=== PATIENT | female | born 2000 | race Caucasian/White ===

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

== ENCOUNTER → 2018-01-30 | Outpatient (REF) | payer OTHER | LOC: M SFHCLERA 10:58 | PROVIDERS: ATTEND Physician Assistant | DX: J02.9 Acute pharyngitis, unspecified (principal) ==

== ENCOUNTER 2018-07-19 14:51 | Emergency (ER) | payer MEDICAID, OTHER, SELFPAY ==
[~2018-07-19] VITALS: Ht 170.2 cm; Wt 75.8 kg
[2018-07-19 15:53] LABS: BASO % 0.4 % (0.0-1.0); EOS # 0.1 10^3/uL (0.0-0.50); EOS % 0.8 % (0.0-3.0); HEMATOCRIT 40.5 % (36.0-47.0); HEMOGLOBIN 13.5 g/dl (12.0-15.5); LYMPH # 1.8 10^3/uL (1.5-6.5); LYMPH % 25.5 % (24.0-44.0); MEAN CORPUSCULAR HEMOGLOBIN 29.5 pg (27.0-33.0); MEAN CORPUSCULAR HGB CONC 33.3 g/dl (32.0-36.5); MEAN CORPUSCULAR VOLUME 88.6 fl (80.0-96.0); MONO # 0.6 10^3/uL (0.0-0.8); MONO % 8.4 % (0.0-5.0); NEUTROPHILS # 4.6 10^3/uL (1.8-7.7); NEUTROPHILS % 64.6 % (36.0-66.0); PLATELET COUNT, AUTOMATED 274 10^3/uL (150-450); RED BLOOD COUNT 4.57 10^6/uL (4.00-5.40); WHITE BLOOD COUNT 7.2 10^3/uL (4.0-10.0)
[2018-07-19 16:12] LABS: BLOOD UREA NITROGEN 13 MG/DL (7-18); CALCIUM LEVEL 8.8 MG/DL (8.5-10.1); CARBON DIOXIDE LEVEL 32 MEQ/L (21-32); CHLORIDE LEVEL 107 MEQ/L (98-107); CREATININE FOR GFR 0.85 MG/DL (0.55-1.30); GLUCOSE, FASTING 89 MG/DL (70-100); POTASSIUM SERUM 4.6 MEQ/L (3.5-5.1); SODIUM LEVEL 142 MEQ/L (136-145)
[2018-07-19 16:23] LABS: HCG, SERUM QUALITATIVE NEGATIVE (NEGATIVE)
[2018-07-19 18:19] VITALS: BP 131/74
--- NOTE | 2018-07-19 18:25 | REP ---
NON-OB PELVIC ULTRASOUND: HISTORY: Left lower quadrant pain. The uterus measures 4 cm in tranverse x 3 cm in AP x 7.1 cm in cephalocaudal dimensions. The endometrium measures 5.7 mm. The right ovary measures 4.3 x 1.9 x 1.8 cm. The left ovary measures 3.6 x 1.4 x 1.2 cm. Normal blood flow is present. There is no fluid in the cul-de-sac. IMPRESSION:Normal pelvic ultrasound. Electronically Signed by Manoj Velazquez MD 07/19/2018 07:19 P
[2018-07-19 18:56] LABS: CHLAMYDIA DNA AMPLIFICATION NEGATIVE (NEGATIVE); GC DNA AMPLIFICATION NEGATIVE (NEGATIVE)
== END 2018-07-19 18:23 | disposition home or self-care (01) ==
LOC: M ED 14:51
DX: N93.9 Abnormal uterine and vaginal bleeding, unspecified (principal); Z86.19 Personal history of other infectious and parasitic diseases; Z91.410 Personal history of adult physical and sexual abuse; Z88.0 Allergy status to penicillin; Z88.1 Allergy status to other antibiotic agents

== ENCOUNTER → 2018-09-18 | Outpatient (REF) | payer OTHER, SELFPAY ==
[2018-09-18 20:27] LABS: HCG, SERUM QUALITATIVE NEGATIVE (NEGATIVE)
[2018-09-18 22:13] LABS: CHLAMYDIA DNA AMPLIFICATION NEGATIVE (NEGATIVE); GC DNA AMPLIFICATION NEGATIVE (NEGATIVE)
== END ==
LOC: M SFHCLERA 18:32
PROVIDERS: ATTEND Physician Assistant Medical
DX: R10.2 Pelvic and perineal pain (principal)

== ENCOUNTER → 2021-05-06 | Outpatient (REF) | payer OTHER ==
[2021-05-06 17:00] LABS: HEMATOCRIT 35.3 % (36.0-47.0); HEMOGLOBIN 12.1 g/dl (12.0-15.5); MEAN CORPUSCULAR HEMOGLOBIN 30.7 pg (27.0-33.0); MEAN CORPUSCULAR HGB CONC 34.3 g/dl (32.0-36.5); MEAN CORPUSCULAR VOLUME 89.6 fl (80.0-96.0); PLATELET COUNT, AUTOMATED 215 10^3/uL (150-450); RED BLOOD COUNT 3.94 10^6/uL (4.00-5.40); WHITE BLOOD COUNT 9.9 10^3/uL (4.0-10.0)
[2021-05-06 19:10] LABS: HEPATITIS B SURFACE ANTIGEN NEGATIVE (NEGATIVE); HEPATITIS C VIRUS ABY INDEX 0.2 INDEX (<0.8); HIV 1&2 SCREEN CENTAUR NEGATIVE (NEGATIVE)
== END ==
LOC: M LAB REF 16:18
PROVIDERS: ATTEND Obstetrics & Gynecology
DX: Z34.82 Encounter for supervision of other normal pregnancy, second trimester (principal)

== ENCOUNTER → 2021-06-19 | Outpatient (CLI) | payer OTHER ==
[2021-06-19 14:04] LABS: BASO % 0.3 % (0.0-1.0); EOS % 0.6 % (0.0-3.0); HEMATOCRIT 37.6 % (36.0-47.0); HEMOGLOBIN 12.6 g/dl (12.0-15.5); LYMPH # 0.7 10^3/uL (1.5-5.0); LYMPH % 11.1 % (24.0-44.0); MEAN CORPUSCULAR HEMOGLOBIN 29.9 pg (27.0-33.0); MEAN CORPUSCULAR HGB CONC 33.5 g/dl (32.0-36.5); MEAN CORPUSCULAR VOLUME 89.1 fl (80.0-96.0); MONO # 0.5 10^3/uL (0.0-0.8); NEUTROPHILS # 5.3 10^3/uL (1.5-8.5); NEUTROPHILS % 80.4 % (36.0-66.0); PLATELET COUNT, AUTOMATED 198 10^3/uL (150-450); RED BLOOD COUNT 4.22 10^6/uL (4.00-5.40); WHITE BLOOD COUNT 6.6 10^3/uL (4.0-10.0)
== END ==
LOC: M LAB 11:58
PROVIDERS: ATTEND Obstetrics & Gynecology
DX: Z34.82 Encounter for supervision of other normal pregnancy, second trimester (principal)

== ENCOUNTER 2021-08-18 16:10 | Outpatient (CLI) | payer OTHER ==
[~2021-08-18] VITALS: Ht 170.2 cm; Wt 80.3 kg
[2021-08-18 16:28] VITALS: BP 142/84
[2021-08-18 16:46] VITALS: BP 122/75
[2021-08-18] MEDS ORDERED: PNV-TAB2 PO (18:05)
== END 2021-08-18 18:10 | disposition home or self-care (01) ==
LOC: M LDO 16:10
PROVIDERS: ATTEND Obstetrics & Gynecology
DX: O26.893 Other specified pregnancy related conditions, third trimester (principal); N89.8 Other specified noninflammatory disorders of vagina; O99.513 Diseases of the respiratory system complicating pregnancy, third trimester; J06.9 Acute upper respiratory infection, unspecified; Z3A.34 34 weeks gestation of pregnancy

== ENCOUNTER → 2021-08-25 | Outpatient (REF) | payer OTHER, MEDICAID ==
[~2021-08-25] MED LIST changes: +PNV-TAB2 PO
== END ==
LOC: M LAB REF 16:28
PROVIDERS: ATTEND Advanced Practice Midwife
DX: Z34.03 Encounter for supervision of normal first pregnancy, third trimester (principal)

== ENCOUNTER → 2021-08-26 | Outpatient (CLI) | payer MEDICAID, OTHER ==
[2021-08-26 14:12] LABS: FREE T4 0.94 NG/DL (0.76-1.46); THYROID STIMULATING HORMONE 0.684 uIU/ML (0.358-3.740)
== END ==
LOC: M PLALAB 10:07
PROVIDERS: ATTEND Internal Medicine Cardiovascular Disease
DX: R00.0 Tachycardia, unspecified (principal)

== ENCOUNTER 2021-09-07 10:24 | Inpatient (IN) | payer OTHER ==
[2021-09-07] VITALS (30 sets, daily range): BP systolic 105–177; BP diastolic 70–103
[~2021-09-07] VITALS: Ht 170.2 cm; Wt 81.2 kg
[2021-09-07] MEDS ORDERED: HOME MED LIST COMPLETE! XX SCH (10:55)
[2021-09-07 11:32] LABS: HEMOGLOBIN 12.4 g/dl (12.0-15.5); MEAN CORPUSCULAR HEMOGLOBIN 27.7 pg (27.0-33.0); MEAN CORPUSCULAR HGB CONC 33.5 g/dl (32.0-36.5); MEAN CORPUSCULAR VOLUME 82.6 fl (80.0-96.0); PLATELET COUNT, AUTOMATED 171 10^3/uL (150-450); RED BLOOD COUNT 4.48 10^6/uL (4.00-5.40); WHITE BLOOD COUNT 9.2 10^3/uL (4.0-10.0)
[2021-09-07] MEDS ORDERED: LACTATED RINGER'S 1000 ML IV STA (11:36)
[2021-09-07] MEDS ORDERED: OXYTOCIN INJ 10 UNITS/ML VIAL (J2590) IM PRN (11:40)
[2021-09-07] MEDS ORDERED: TRANEXAMIC ACID INJection 1,000 MG in NS 100 ML IV PRN (11:40)
[2021-09-07] MEDS ORDERED: OXYTOCIN DRIP 30 UNITS in IV 1 EA IV PRN (11:40)
[2021-09-07] MEDS ORDERED: LIDOCAINE 1% MDV 20ML VIAL INFIL PRN (11:40)
[2021-09-07] MEDS ORDERED: METHYLERGONOVINE MALEATE 0.2 MG/ML VIAL (J2210) IM PRN (11:40)
[2021-09-07] MEDS ORDERED: CARBOPROST TROMETHAMINE 250 MCG/ML AMP IM PRN (11:40)
[2021-09-07] MEDS ORDERED: miSOPROStol 50MCG 1/2 TABLET PO SCH (12:10)
[2021-09-07 12:45] LABS: TOTAL PROTEIN,RANDOM URINE 16.7 MG/DL (0.0-12.0)
[2021-09-07 12:48] LABS: ALT/SGPT 21 U/L (12-78); BILIRUBIN,TOTAL 0.6 MG/DL (0.2-1.0); CREATININE FOR GFR 0.52 MG/DL (0.55-1.30); GLOMERULAR FILTRATION RATE > 60.0 (>60); LDH LACTATE DEHYDROGENASE 199 U/L (84-246)
[2021-09-07] MEDS ORDERED: LR 1,000 ML IV SCH (17:00)
[2021-09-07] MEDS ORDERED: OXYTOCIN DRIP 30 UNITS in IV 1 EA IV SCH (17:00)
[2021-09-07] MEDS ORDERED: FENTANYL 2MCG/ML ROPIVACAINE 0.2% IN 0.9% NACL 100ML IVBAG As Ordered ONE (20:49)
[2021-09-07] MEDS ORDERED: ePHEDrine SULFATE 25 MG/5 ML(5MG/ML) SYRINGE IVP PRN (21:15)
[2021-09-07] MEDS ORDERED: NALOXONE INJ 0.4MG/1ML VIAL (J2310 PER 1MG) IV PRN (21:15)
[2021-09-07] MEDS ORDERED: diphenhydrAMINE 50MG/ML VIAL (J1200) IV PRN (21:15)
[2021-09-07] MEDS ORDERED: FENTANYL/ROPIVACAINE/NACL BAG 100 ML EPIDURAL SCH (21:15)
[2021-09-07] MEDS ORDERED: EPIDURAL/PCA KEYS XX PRN (21:15)
[2021-09-07] MEDS ORDERED: LR 500 ML IV PRN (21:15)
[2021-09-07] MEDS ORDERED: ONDANSETRON 4MG 2ML VIAL IV PRN (21:15)
[2021-09-08] VITALS (17 sets, daily range): BP systolic 114–189; BP diastolic 57–101
[2021-09-08 00:41] LABS: APPEARANCE, URINE HAZY (CLEAR); BACTERIA, URINE AUTO NEGATIVE (NEGATIVE); BILIRUBIN, URINE AUTO NEGATIVE (NEGATIVE); BLOOD, URINE BLOOD 2+ (NEGATIVE); COLOR, URINE YELLOW (YELLOW); GLUCOSE, URINE (UA) AUTO NEGATIVE (NEGATIVE); KETONE, URINE AUTO 1+ mg/dL (NEGATIVE); LEUKOCYTE ESTERASE, URINE AUTO NEGATIVE (NEGATIVE); MUCUS, URINE SMALL (NEGATIVE); NITRITE, URINE AUTO NEGATIVE (NEGATIVE); PROTEIN, URINE AUTO NEGATIVE (NEGATIVE); RBC, URINE AUTO 160 /HPF (0-3); SPECIFIC GRAVITY URINE AUTO 1.014 (1.002-1.035); SQUAMOUS EPITHELIAL CELL UR AU 0 /HPF (0-6); TRANSITIONAL EPITHELIAL AUTO <1 /HPF; UROBILINOGEN, URINE AUTO 0.2 mg/dL (0.0-2.0); WBC, URINE AUTO 2 /HPF (0-3)
[2021-09-08 02:49] LABS: GC DNA AMPLIFICATION NEGATIVE (NEGATIVE)
[2021-09-08] MEDS ORDERED: ACETAMINOPHEN 500 MG TAB PO PRN (05:10)
[2021-09-08] MEDS ORDERED: IBUPROFEN 600MG TAB PO PRN (05:10)
[2021-09-08] MEDS ORDERED: RHOGAM 300 MCG (1500 IU) INJ (J2790) IM SCH (05:10)
[2021-09-08] MEDS ORDERED: MOM 30ML SUSPENSION UDC PO PRN (05:10)
[2021-09-08] MEDS ORDERED: DIBUCAINE 1% OINTMENT 30GM TOP PRN (05:10)
[2021-09-08] MEDS ORDERED: METHYLERGONOVINE MALEATE 0.2 MG TAB PO PRN (05:10)
[2021-09-08] MEDS ORDERED: ANUSOL HC CREAM 30GM TOP PRN (05:10)
[2021-09-08] MEDS ORDERED: DOCUSATE SODIUM 100MG CAPSULE PO PRN (05:10)
[2021-09-08] MEDS: ACETAMINOPHEN TAB 650MG DOSE (2X325MG) PO PRN (06:26)
[2021-09-08] MEDS: PRENATAL VITAMINS CHEWABLE TABLET PO SCH (08:24)
[2021-09-08] MEDS: IBUPROFEN 800 MG TAB PO PRN ×2 (08:25→17:06)
[2021-09-09] MEDS: IBUPROFEN 800 MG TAB PO PRN ×2 (03:18→15:37)
[2021-09-09 06:00] VITALS: BP 137/81
[2021-09-09] MEDS: PRENATAL VITAMINS CHEWABLE TABLET PO SCH (07:38)
[2021-09-09] MEDS: ANUSOL HC CREAM 30GM TOP SCH ×2 (13:11→21:34)
[2021-09-09 18:00] VITALS: BP 131/69
[2021-09-09] MEDS: ACETAMINOPHEN TAB 650MG DOSE (2X325MG) PO PRN (21:36)
[2021-09-10] MEDS: IBUPROFEN 800 MG TAB PO PRN (04:34)
[2021-09-10 06:00] VITALS: BP 135/77
[2021-09-10] MEDS: ANUSOL HC CREAM 30GM TOP SCH (07:51)
[2021-09-10] MEDS: PRENATAL VITAMINS CHEWABLE TABLET PO SCH (07:51)
[2021-09-10] MEDS ORDERED: MEASLES,MUMPS,RUBELLA VACCINE INJ (MMR-II) (90707) SC.IMMUN ONE (09:00)
[2021-09-10] MEDS ORDERED: IBUP-1022 PO (09:28)
[2021-09-10] MEDS ORDERED: COLA100C5 PO (09:28)
[2021-09-10] MEDS ORDERED: ACET-683 PO (09:28)
[2021-09-10] MEDS ORDERED: medroxyPROGESTERone ACET IM SUSP 150 MG/ML VIAL (J1050) IM ONE (09:35)
== END 2021-09-10 11:20 | disposition home or self-care (01) | DRG 560 ==
LOC: M LDO 10:24 → M LDI 10:50 → M OBS 09-08 06:00
PROVIDERS: ADMIT Advanced Practice Midwife; ATTEND Advanced Practice Midwife
PROC: 10E0XZZ Delivery of Products of Conception, External Approach (ICD-10-PCS; principal; 2021-09-08)
PROC: 0HQ9XZZ Repair Perineum Skin, External Approach (ICD-10-PCS; 2021-09-08)
DX: O42.02 Full-term premature rupture of membranes, onset of labor within 24 hours of rupture (principal); O13.2 Gestational [pregnancy-induced] hypertension without significant proteinuria, second trimester; Z3A.38 38 weeks gestation of pregnancy; Z37.0 Single live birth; O70.0 First degree perineal laceration during delivery

== ENCOUNTER → 2021-11-09 | Outpatient (REF) ==
[~2021-11-09] MED LIST changes: +ACET-683 PO; +COLA100C5 PO; +IBUP-1022 PO
== END ==
LOC: M EMP 07:36
PROVIDERS: ATTEND Family Medicine
DX: Z11.52 Encounter for screening for COVID-19 (principal)

== ENCOUNTER → 2021-11-13 | Outpatient (REF) | LOC: M EMP 11-12 12:02 | PROVIDERS: ATTEND Family Medicine | DX: Z11.52 Encounter for screening for COVID-19 (principal) ==

== ENCOUNTER → 2021-11-19 | Outpatient (REF) | LOC: M EMP 07:36 | PROVIDERS: ATTEND Family Medicine | DX: Z11.52 Encounter for screening for COVID-19 (principal) ==

== ENCOUNTER → 2021-12-18 | Outpatient (REF) ==
[2021-12-18 12:19] LABS: RSV AMPLIFICATION NEGATIVE (NEGATIVE)
== END ==
LOC: M EMP 10:38
PROVIDERS: ATTEND Family Medicine
DX: Z11.52 Encounter for screening for COVID-19 (principal)

== ENCOUNTER 2022-02-14 09:44 | Emergency (ER) | payer OTHER ==
[~2022-02-14] VITALS: Ht 170.2 cm; Wt 68.1 kg
[2022-02-14 12:24] VITALS: BP 117/70
== END 2022-02-14 12:27 | disposition home or self-care (01) ==
LOC: M ED 09:44
DX: J02.9 Acute pharyngitis, unspecified (principal); R00.0 Tachycardia, unspecified; Z88.1 Allergy status to other antibiotic agents; Z88.5 Allergy status to narcotic agent

== ENCOUNTER → 2022-03-25 | Outpatient (REF) ==
[2022-03-25 13:31] LABS: RSV AMPLIFICATION NEGATIVE (NEGATIVE)
== END ==
LOC: M LABSMTC 10:47
PROVIDERS: ATTEND Family Medicine
DX: Z11.52 Encounter for screening for COVID-19 (principal)

== ENCOUNTER → 2022-03-30 | Outpatient (REF) | payer OTHER ==
[2022-03-30 17:07] LABS: BASO % 0.7 % (0.0-1.0); EOS # 0.1 10^3/uL (0.0-0.5); EOS % 1.2 % (0.0-3.0); HEMATOCRIT 40.8 % (36.0-47.0); HEMOGLOBIN 13.6 g/dl (12.0-15.5); LYMPH # 2.1 10^3/uL (1.5-5.0); LYMPH % 35.5 % (24.0-44.0); MEAN CORPUSCULAR HEMOGLOBIN 28.8 pg (27.0-33.0); MEAN CORPUSCULAR HGB CONC 33.3 g/dl (32.0-36.5); MEAN CORPUSCULAR VOLUME 86.4 fl (80.0-96.0); MONO # 0.4 10^3/uL (0.0-0.8); NEUTROPHILS # 3.4 10^3/uL (1.5-8.5); NEUTROPHILS % 56.4 % (36.0-66.0); PLATELET COUNT, AUTOMATED 291 10^3/uL (150-450); RED BLOOD COUNT 4.72 10^6/uL (4.00-5.40)
[2022-03-30 17:46] LABS: BLOOD UREA NITROGEN 8 MG/DL (9-23); CALCIUM LEVEL 9.3 MG/DL (8.5-10.1); CARBON DIOXIDE LEVEL 28 MMOL/L (20-31); CHLORIDE LEVEL 104 MMOL/L (98-107); GLUCOSE, FASTING 72 MG/DL (60-100); POTASSIUM SERUM 4.2 MMOL/L (3.5-5.1); SODIUM LEVEL 138 MMOL/L (136-145)
[2022-03-30 20:08] LABS: CREATININE FOR GFR 0.65 MG/DL (0.55-1.30); GLOMERULAR FILTRATION RATE > 60.0 (>60)
== END ==
LOC: M LAB REF 16:34
PROVIDERS: ATTEND Physician Assistant
DX: E87.6 Hypokalemia (principal)

== ENCOUNTER → 2022-05-21 | Outpatient (CLI) | payer OTHER | LOC: M WHC 07:36 | PROVIDERS: ATTEND Physician Assistant | DX: R10.2 Pelvic and perineal pain (principal); N93.9 Abnormal uterine and vaginal bleeding, unspecified; Z97.5 Presence of (intrauterine) contraceptive device ==

== ENCOUNTER → 2022-06-22 | Outpatient (REF) | LOC: M EMP 10:44 | PROVIDERS: ATTEND Family Medicine | DX: Z11.52 Encounter for screening for COVID-19 (principal) ==

== ENCOUNTER → 2022-06-24 | Outpatient (CLI) | payer OTHER ==
[2022-06-24 14:52] LABS: HIV 1&2 SCREEN NEGATIVE (NEGATIVE)
== END ==
LOC: M PLALAB 09:45
PROVIDERS: ATTEND Physician Assistant
DX: Z11.4 Encounter for screening for human immunodeficiency virus [HIV] (principal); Z11.59 Encounter for screening for other viral diseases; Z83.49 Family history of other endocrine, nutritional and metabolic diseases

== ENCOUNTER → 2022-07-13 | Outpatient (REF) ==
[2022-07-13 09:48] LABS: RSV AMPLIFICATION NEGATIVE (NEGATIVE)
== END ==
LOC: M EMP 08:14
PROVIDERS: ATTEND Family Medicine
DX: Z11.52 Encounter for screening for COVID-19 (principal)

== ENCOUNTER → 2022-10-01 | Outpatient (CLI) | payer OTHER | LOC: M RAD 12:52 | PROVIDERS: ATTEND Advanced Practice Midwife | DX: Z30.431 Encounter for routine checking of intrauterine contraceptive device (principal) ==

== ENCOUNTER → 2023-01-06 | Outpatient (REF) | LOC: M EMP 10:09 | PROVIDERS: ATTEND Family Medicine | DX: Z11.52 Encounter for screening for COVID-19 (principal) ==

== ENCOUNTER → 2023-03-14 | Outpatient (CLI) | payer OTHER ==
[2023-03-14 16:34] LABS: HEMATOCRIT 40.2 % (36.0-47.0); MEAN CORPUSCULAR HEMOGLOBIN 30.4 pg (27.0-33.0); MEAN CORPUSCULAR HGB CONC 34.8 g/dl (32.0-36.5); MEAN CORPUSCULAR VOLUME 87.2 fl (80.0-96.0); PLATELET COUNT, AUTOMATED 264 10^3/uL (150-450); RED BLOOD COUNT 4.61 10^6/uL (4.00-5.40); WHITE BLOOD COUNT 5.6 10^3/uL (4.0-10.0)
== END ==
LOC: M LAB 15:44
PROVIDERS: ATTEND Physician Assistant
DX: R53.83 Other fatigue (principal)

== ENCOUNTER → 2023-08-18 | Outpatient (REF) | payer OTHER ==
[2023-08-20 13:38] LABS: HPV APTIMA Detected (Not Detected)
== END ==
LOC: M LAB REF 16:31
PROVIDERS: ATTEND Physician Assistant
DX: Z12.4 Encounter for screening for malignant neoplasm of cervix (principal); Z11.3 Encounter for screening for infections with a predominantly sexual mode of transmission; Z01.419 Encounter for gynecological examination (general) (routine) without abnormal findings

== ENCOUNTER → 2023-11-17 | Outpatient (REF) | payer OTHER | LOC: M PLALAB 14:07 | PROVIDERS: ATTEND Advanced Practice Midwife | DX: R87.613 High grade squamous intraepithelial lesion on cytologic smear of cervix (HGSIL) (principal); R87.810 Cervical high risk human papillomavirus (HPV) DNA test positive ==

== ENCOUNTER 2023-12-24 08:25 | Emergency (ER) | payer OTHER ==
[~2023-12-24] VITALS: Ht 170.2 cm; Wt 68.6 kg
[2023-12-24] MEDS ORDERED: ESCITALOPRAM (08:42)
[2023-12-24] MEDS ORDERED: ETON1VAG7 PV ×2 (08:42)
[2023-12-24] MEDS: MECLIZINE 25 MG TABLET PO ONE (10:23)
[2023-12-24 10:46] LABS: BASO % 0.5 % (0.0-1.0); EOS # 0.1 10^3/uL (0.0-0.5); EOS % 0.9 % (0.0-3.0); HEMATOCRIT 46.4 % (36.0-47.0); HEMOGLOBIN 15.8 g/dl (12.0-15.5); LYMPH % 30.3 % (24.0-44.0); MEAN CORPUSCULAR HEMOGLOBIN 30.2 pg (27.0-33.0); MEAN CORPUSCULAR HGB CONC 34.1 g/dl (32.0-36.5); MEAN CORPUSCULAR VOLUME 88.7 fl (80.0-96.0); MONO # 0.4 10^3/uL (0.0-0.8); MONO % 5.6 % (2.0-8.0); NEUTROPHILS % 62.4 % (36.0-66.0); PLATELET COUNT, AUTOMATED 272 10^3/uL (150-450); RED BLOOD COUNT 5.23 10^6/uL (4.00-5.40); WHITE BLOOD COUNT 6.5 10^3/uL (4.0-10.0)
[2023-12-24 11:07] VITALS: BP 123/75; TEMP 97.6; O2SAT 97
[2023-12-24 11:21] LABS: BLOOD UREA NITROGEN 9 MG/DL (9-23); CALCIUM LEVEL 9.9 MG/DL (8.5-10.1); CARBON DIOXIDE LEVEL 27 MMOL/L (20-31); CHLORIDE LEVEL 108 MMOL/L (98-107); CREATININE FOR GFR 0.56 MG/DL (0.55-1.30); GLOMERULAR FILTRATION RATE > 60.0 (>60); GLUCOSE, FASTING 76 MG/DL (60-100); POTASSIUM SERUM 4.2 MMOL/L (3.5-5.1); SODIUM LEVEL 141 MMOL/L (136-145)
[2023-12-24 11:22] LABS: PTH INTACT 36.8 PG/ML (18.5-88.0)
[2023-12-24 11:23] LABS: FREE T4 1.32 NG/DL (0.89-1.76); VITAMIN B12 LEVEL 532 PG/ML (211-911)
[2023-12-24] MEDS ORDERED: MECL-86 PO (11:32)
== END 2023-12-24 11:48 | disposition home or self-care (01) ==
LOC: M ED 08:25
DX: R42 Dizziness and giddiness (principal); F41.9 Anxiety disorder, unspecified; Z88.1 Allergy status to other antibiotic agents; Z88.5 Allergy status to narcotic agent; Z88.8 Allergy status to other drugs, medicaments and biological substances

== ENCOUNTER → 2024-01-30 | Outpatient (REF) | payer OTHER ==
[~2024-01-30] MED LIST changes: +ESCITALOPRAM; +ETON1VAG7 PV; +MECL-86 PO
== END ==
LOC: M PLALAB 16:35
PROVIDERS: ATTEND Specialist
DX: D06.9 Carcinoma in situ of cervix, unspecified (principal)

== ENCOUNTER → 2024-05-04 | Outpatient (REF) | payer OTHER ==
[2024-05-08 11:54] LABS: HPV APTIMA Not Detected (Not Detected)
== END ==
LOC: M LAB REF 17:50
PROVIDERS: ATTEND Physician Assistant
DX: Z12.4 Encounter for screening for malignant neoplasm of cervix (principal)

== ENCOUNTER → 2024-10-17 | Outpatient (REF) | payer OTHER ==
[~2024-10-17] MED LIST changes: -IBUP-1022 PO; +IBUP600T42 PO
[2024-10-20 13:57] LABS: HPV APTIMA Not Detected (Not Detected)
== END ==
LOC: M LAB REF 08:35
PROVIDERS: ATTEND Nurse Practitioner Family
DX: R87.613 High grade squamous intraepithelial lesion on cytologic smear of cervix (HGSIL) (principal); R87.810 Cervical high risk human papillomavirus (HPV) DNA test positive